=== PATIENT | female | born 1980 | race Caucasian/White ===

== ENCOUNTER 2017-01-04 09:35 | Emergency (ER) | payer OTHER ==
[~2017-01-04] VITALS: Ht 157.5 cm; Wt 98.2 kg
[~2017-01-04 09:35] MED LIST: Motrin PO; NOHOMEMEDS
[2017-01-04] MEDS ORDERED: SKELAXIN800 MG PO (11:32)
[2017-01-04 11:53] VITALS: BP 99/60
== END 2017-01-04 11:54 | disposition home or self-care (01) ==
LOC: EME 09:35
DX: M54.16 Radiculopathy, lumbar region (principal)
CPT/HCPCS: 99281; 99282